=== PATIENT | female | born 1945 | race Caucasian/White ===

== ENCOUNTER 2021-01-14 12:27 | Outpatient (CLI) | payer MEDICARE, BC | END 2021-01-14 12:28 | disposition home or self-care (01) | LOC: CSHMAMMO 12:27 | PROVIDERS: ATTEND Internal Medicine | DX: Z12.31 Encounter for screening mammogram for malignant neoplasm of breast (principal) | CPT/HCPCS: 77063; 77067 ==

== ENCOUNTER 2022-08-02 14:05 | Outpatient (CLI) | payer MEDICARE, BC | END 2022-08-02 14:06 | disposition home or self-care (01) | LOC: CSHMAMMO 14:05 | PROVIDERS: ATTEND Internal Medicine | DX: Z12.31 Encounter for screening mammogram for malignant neoplasm of breast (principal); Z13.820 Encounter for screening for osteoporosis; Z85.89 Personal history of malignant neoplasm of other organs and systems; Z78.0 Asymptomatic menopausal state | CPT/HCPCS: 77063; 77067; 77080 ==